=== PATIENT | male | born 1965 ===

== ENCOUNTER → 2017-09-02 | Outpatient (CLI) | payer BC ==
[~2017-09-02] VITALS: Ht 170.2 cm; Wt 80.0 kg
[~2017-09-02] MED LIST: ATOR40TA28 PO; CARV6 PO; HYDR-2924 PO; NIFE60TA81 PO; PHOSLOC PO
[2017-09-02 14:35] VITALS: BP 158/90
== END | disposition home or self-care (01) ==
LOC: SRCNTR 14:34
PROVIDERS: ATTEND Internal Medicine
DX: I12.0 Hypertensive chronic kidney disease with stage 5 chronic kidney disease or end stage renal disease (principal); E11.22 Type 2 diabetes mellitus with diabetic chronic kidney disease; N18.6 End stage renal disease; J96.00 Acute respiratory failure, unspecified whether with hypoxia or hypercapnia; Z99.2 Dependence on renal dialysis; Z87.891 Personal history of nicotine dependence; J44.9 Chronic obstructive pulmonary disease, unspecified
CPT/HCPCS: G0463